=== PATIENT | male | born 1985 | race Caucasian/White ===

== ENCOUNTER → 2019-07-18 | Outpatient (CLI) | payer OTHER ==
[2019-07-18 11:23] LABS: BASO % 1 % (0-3); EOS # 0.2 x10^3/uL (0.0-0.7); EOS % 2 % (0-3); HEMOGLOBIN 14.2 g/dL (13.0-17.5); LYMPH # 1.2 x10^3/uL (1.0-4.8); LYMPH % 13 % (24-48); MEAN CORPUSCULAR HEMOGLOBIN 30 pg (25-35); MEAN CORPUSCULAR HGB CONC 34 g/dL (31-37); MEAN CORPUSCULAR VOLUME 90 fL (79-100); MONO # 0.7 x10^3/uL (0.0-1.1); MONO % 7 % (0-9); NEUT # 7.2 x10^3uL (1.8-7.7); NEUT % 78 % (31-73); PLATELET COUNT 198 x10^3/uL (140-400); RED BLOOD COUNT 4.68 x10^6/uL (4.30-5.70); RED CELL DISTRIBUTION WIDTH 13.6 % (11.5-14.5); WHITE BLOOD COUNT 9.3 x10^3/uL (4.0-11.0)
[2019-07-18 11:44] LABS: ALBUMIN 3.8 g/dL (3.4-5.0); ALBUMIN/GLOBULIN RATIO 1.2 (1.0-1.7); CREATININE 0.9 mg/dL (0.7-1.3); GFR 96.6; POTASSIUM 4.6 mmol/L (3.5-5.1); TOTAL BILIRUBIN 0.7 mg/dL (0.2-1.0)
--- NOTE | 2019-07-18 14:13 | RAD ---
EXAM: Chest, 2 views; abdomen, single view. HISTORY: Cough. Pain. COMPARISON: None. FINDINGS: CHEST: 2 views of the chest are obtained. There is no infiltrate, pleural effusion or pneumothorax. The heart is normal in size. There are dorsal column stimulator leads overlying the mid thoracic spine. ABDOMEN: A frontal view of the abdomen is obtained. There is moderate colonic stool. There is no evidence of bowel obstruction. There is a dorsal column stimulator generator overlying the left abdomen. IMPRESSION: 1. No acute pulmonary finding. 2. No obstructive bowel gas pattern. Electronically signed by: India Diego MD (07/18/2019 2:10 PM) [place] [id number]
[2019-07-18 14:34] LABS: FREE T4 1.08 ng/dL (0.76-1.46); THYROID STIM HORMONE (TSH) 1.431 uIU/mL (0.358-3.740)
== END | disposition home or self-care (01) ==
LOC: RAD 10:34
PROVIDERS: ATTEND Family Medicine
DX: K56.41 Fecal impaction (principal); R05 Cough; R63.4 Abnormal weight loss
CPT/HCPCS: 36415; 71046; 74018; 80053; 84439; 84443; 85025